=== PATIENT | female | born 1985 | race African-American/Black ===

== ENCOUNTER 2024-12-19 12:51 | Emergency (ER) | payer OTHER ==
[~2024-12-19] VITALS: Ht 160 cm; Wt 122.5 kg
[2024-12-19 13:00] VITALS: RESP 16; TEMP 98.3
[2024-12-19] MEDS ORDERED: DICYCLOMINE HCL20 MG PO (13:57)
[2024-12-19] MEDS ORDERED: HYDROCHLOROTH12.5 MG PO (13:57)
[2024-12-19 14:00] VITALS: PULSE 58; O2SAT 100
[2024-12-19] MEDS ORDERED: ONDANSETRON ODT4 MG PO (14:02)
== END 2024-12-19 14:06 | disposition home or self-care (01) ==
LOC: ER 13:30
DX: R11.2 Nausea with vomiting, unspecified (principal); K29.70 Gastritis, unspecified, without bleeding; R10.13 Epigastric pain; D25.9 Leiomyoma of uterus, unspecified; K21.9 Gastro-esophageal reflux disease without esophagitis; I10 Essential (primary) hypertension; E11.9 Type 2 diabetes mellitus without complications; F17.210 Nicotine dependence, cigarettes, uncomplicated
CPT/HCPCS: 99282